=== PATIENT | female | born 1950 | race Caucasian/White ===

== ENCOUNTER 2022-08-30 07:09 | Day surgery (SDC) | payer MEDICARE, MEDICAID ==
[~2022-08-30] VITALS: Ht 160 cm; Wt 60.5 kg
[2022-08-30 07:20] VITALS: BP 129/91
[2022-08-30] MEDS ORDERED: fentaNYL/PF 50MCG/1 ML 2ML syringe ONE (07:51)
[2022-08-30] MEDS ORDERED: LIDOcaine Viscous 15ml cup ONE (07:51)
[2022-08-30] MEDS ORDERED: MIDAZolam 1 MG/ML 5ML VIAL ONE (07:51)
[2022-08-30] MEDS ORDERED: TRAM50TA2 PO (08:01)
[2022-08-30] MEDS ORDERED: VALA100031 PO (08:03)
[2022-08-30] MEDS ORDERED: SILDENAFIL PO (08:04)
[2022-08-30] MEDS ORDERED: ALBU6.7H14 INH (08:05)
[2022-08-30] MEDS ORDERED: AMLO2.5T2 PO (08:06)
[2022-08-30] MEDS ORDERED: VALS40TA2 PO (08:07)
[2022-08-30] MEDS ORDERED: FURO-150 PO (08:08)
[2022-08-30] MEDS ORDERED: AMBR10TA3 PO (08:09)
[2022-08-30] MEDS ORDERED: diphenhydrAMINE 50 mg/ml inj ONE (09:00)
[2022-08-30 10:00] VITALS: BP 137/70
[2022-08-30 10:10] VITALS: BP 110/61
[2022-08-30 10:20] VITALS: BP 106/54
== END 2022-08-30 11:00 | disposition home or self-care (01) ==
LOC: GI LAB 07:09
PROVIDERS: ATTEND Internal Medicine Gastroenterology
DX: R19.7 Diarrhea, unspecified (principal); R10.13 Epigastric pain; R12 Heartburn; K29.50 Unspecified chronic gastritis without bleeding; K29.80 Duodenitis without bleeding; K57.30 Diverticulosis of large intestine without perforation or abscess without bleeding; K64.8 Other hemorrhoids; I27.20 Pulmonary hypertension, unspecified; I10 Essential (primary) hypertension; I25.2 Old myocardial infarction; Z72.89 Other problems related to lifestyle; Z98.51 Tubal ligation status; Z98.890 Other specified postprocedural states; Z79.899 Other long term (current) drug therapy
CPT/HCPCS: 43239; 45378; 99153; G0500; J1200; J2250; J3010; J7030; Z7512; 88305; 99152; A4620

== ENCOUNTER 2022-09-04 09:56 | Outpatient (CLI) | payer MEDICARE, MEDICAID ==
[~2022-09-04 09:56] MED LIST: ALBU6.7H14 INH; AMBR10TA3 PO; AMLO2.5T2 PO; FURO-150 PO; SILDENAFIL PO; TRAM50TA2 PO; VALA100031 PO; VALS40TA2 PO
== END 2022-09-04 23:59 | disposition home or self-care (01) ==
LOC: CARD DIAG 09:56
PROVIDERS: ATTEND Internal Medicine
DX: I08.8 Other rheumatic multiple valve diseases (principal); I27.20 Pulmonary hypertension, unspecified
CPT/HCPCS: 93306

== ENCOUNTER 2024-03-17 13:40 | Outpatient (CLI) | payer MEDICARE, MEDICAID | END 2024-03-17 23:59 | disposition home or self-care (01) | LOC: NM 13:40 | PROVIDERS: ATTEND Nurse Practitioner Acute Care | DX: I27.21 Secondary pulmonary arterial hypertension (principal); J44.9 Chronic obstructive pulmonary disease, unspecified; J84.89 Other specified interstitial pulmonary diseases | CPT/HCPCS: 71046; 78582; A9539; A9540 ==